=== PATIENT | female | born 1950 | race Caucasian/White ===

== ENCOUNTER 2021-03-29 16:02 | Outpatient (CLI) | payer MEDICARE, OTHER | END 2021-03-29 16:03 | disposition home or self-care (01) | LOC: LAB 16:02 | PROVIDERS: ATTEND Orthopaedic Surgery | DX: Z01.812 Encounter for preprocedural laboratory examination (principal); M25.559 Pain in unspecified hip; Z13.89 Encounter for screening for other disorder; Z79.899 Other long term (current) drug therapy | CPT/HCPCS: 87640 ==